=== PATIENT | female | born 1955 | race Caucasian/White ===

== ENCOUNTER 2024-11-15 13:51 | Emergency (ER) | payer MEDICARE ==
[~2024-11-15 13:51] MED LIST: Iopamidol 370 76% 100 ML VIAL ONE
[2024-11-15] MEDS ORDERED: Prochlorperazine 10 MG/2 ML VIAL ONE (14:13)
[2024-11-15] MEDS ORDERED: Ipratropium Bromide 2.5 ml Neb ONE ×2 (14:13→15:38)
[2024-11-15] MEDS ORDERED: Albuterol 2.5 MG (0.5 mL) NEB ONE (14:13)
[2024-11-15] MEDS ORDERED: Morphine 4 MG/ML VIAL ONE (14:14)
[2024-11-15] MEDS ORDERED: Lactated Ringer's 1,000 ML ONE (14:14)
[2024-11-15] MEDS ORDERED: methylPREDNISolone Sod Succ/PF 125 MG/2 ML VIAL ONE (14:14)
[2024-11-15 14:49] LABS: Hematocrit 45.9 % (36.0-47.0); Hemoglobin 14.6 g/dL (12.0-16.0); Mean Corpuscular HGB CONC 31.8 g/dL (32.0-36.0); Mean Corpuscular Hemoglobin 29.7 pg (27.0-31.0); Mean Corpuscular Volume 93.4 fl (78.0-98.0); Mean Platelet Volume 6.7 fL (7.4-10.4); Platelet Count 308 10x3/uL (130-400); Prothrombin Time 13.2 sec (12.0-14.7); RBC Distribution Width 14.6 % (11.5-14.5); Red Blood Cell (RBC) Count 4.92 mill/uL (4.20-5.40); White Blood Cell (WBC) Count 15.2 10x3/uL (4.8-10.8)
[2024-11-15 14:50] LABS: PTT 24.5 sec (22.9-36.1)
[2024-11-15 15:00] LABS: MDiff Complete? YES; Manual Diff?? YES
[2024-11-15 15:01] LABS: ALT (SGPT) 7 U/L (Less than 34); AST (SGOT) 16 U/L (11-34); Albumin 3.5 g/dL (3.1-4.5); Alkaline Phosphatase 139 U/L (40-110); Anion Gap 16 mmol/L (10-20); BUN (Urea Nitrogen) 8 mg/dL (9.8-20.1); Bilirubin, Total 0.6 mg/dL (0.3-1.2); Calc. Creatinine Clearance 0 mL/min (70-130); Calcium 9.1 mg/dL (7.8-10.44); Carbon Dioxide 20 mmol/L (23-31); Chloride 104 mmol/L (98-107); Estimated GFR 83; Globulin 3.9 g/dL (2.4-3.5); Glucose 148 mg/dL (80-115); Lipase 19 U/L (8-78); Magnesium 1.9 mg/dL (1.6-2.6); Potassium 3.7 mmol/L (3.5-5.1); Protein, Total 7.4 g/dL (5.8-8.1); Sodium 136 mmol/L (136-145)
[2024-11-15 15:02] LABS: Troponin I Less than 0.010 ng/mL (< 0.028)
[2024-11-15 15:04] LABS: Lymphocytes 3 % (21-51); Monocytes 3 % (0-10); Neutrophil 83 % (42-75); Platelet Adequacy Comment Appears Adequate; RBC Morph Comment Within Normal Limits; Reactive Lymphocytes 11 % (0-10)
[2024-11-15 15:05] LABS: Bicarbonate (HCO3v) 25.6 mmol/L (22.0-28.0); CO2 Tension (PvCO2) 52.8 mmHg (42.0-51.0); Calcium, Ionized 1.15 mmol/L (1.15-1.33); Chloride 108 mmol/L (98-107); Hemoglobin - Calc 17.6 g/dL (12.0-16.0); Potassium 3.8 mmol/L (3.5-5.1); Sodium 140 mmol/L (138-145); T. Carbon Dioxide 27.3 mmol/L (22.0-28.0); vO2 Saturation-calc 96.3 % (60.0-85.0)
[2024-11-15] MEDS ORDERED: Albuterol 2.5 MG (3 mL) NEB ONE (15:38)
== END 2024-11-15 18:25 | disposition home or self-care (01) ==
LOC: MADERS 13:51
DX: K52.9 Noninfective gastroenteritis and colitis, unspecified (principal); J44.1 Chronic obstructive pulmonary disease with (acute) exacerbation; Z79.51 Long term (current) use of inhaled steroids
CPT/HCPCS: 36415; 71045; 74177; 80053; 82330; 82435; 82803; 83605; 83690; 83735; 83880; 84132; 84295; 84443; 84484; 85014; 85025; 85610; 85730; 87040; 87428; 93005; 94760; 96374; 96375; J0780; J2270; J2919; J7120; J7611; J7644; Q9967

== ENCOUNTER 2025-07-28 18:50 | Emergency (ER) | payer MEDICARE ==
[2025-07-28 19:36] LABS: #Basophils 0.1 thou/uL (0.0-0.2); #Eosinophils 0.1 thou/uL (0.0-0.7); #Lymphocytes 2.4 thou/uL (1.20-3.40); #Monocytes 0.6 thou/uL (0.11-0.59); #Neutrophils 7.7 thou/uL (1.40-6.50); %Basophils 0.9 % (0.0-1.0); %Eosinophils 0.8 % (0.0-10.0); %Lymphocytes 22.1 % (21.0-51.0); %Monocytes 5.8 % (0.0-10.0); %Neutrophils 70.4 % (42.0-75.0); Hematocrit 39.6 % (36.0-47.0); Hemoglobin 12.2 g/dL (12.0-16.0); Mean Corpuscular Hemoglobin 30.6 pg (27.0-31.0); Mean Corpuscular Volume 99.5 fl (78.0-98.0); Platelet Count 266 10x3/uL (130-400); Red Blood Cell (RBC) Count 3.98 mill/uL (4.20-5.40); White Blood Cell (WBC) Count 10.9 10x3/uL (4.8-10.8)
[2025-07-28 19:54] LABS: ALT (SGPT) 19 U/L (Less than 34); AST (SGOT) 41 U/L (11-34); Albumin 3.5 g/dL (3.1-4.5); Alkaline Phosphatase 102 U/L (40-110); Anion Gap 20 mmol/L (10-20); BUN (Urea Nitrogen) 11 mg/dL (9.8-20.1); Bilirubin, Total 0.5 mg/dL (0.3-1.2); Calc. Creatinine Clearance 0 mL/min (70-130); Calcium 8.5 mg/dL (7.8-10.44); Carbon Dioxide 21 mmol/L (23-31); Chloride 96 mmol/L (98-107); Globulin 3.6 g/dL (2.4-3.5); Glucose 99 mg/dL (83-110); Potassium 3.9 mmol/L (3.5-5.1); Sodium 133 mmol/L (136-145)
[2025-07-28] MEDS ORDERED: Ondansetron PF 4 MG/2 ML Vial ONE (20:33)
== END 2025-07-28 19:12 | disposition home or self-care (01) ==
LOC: MADERS 18:50
DX: J44.1 Chronic obstructive pulmonary disease with (acute) exacerbation (principal); I50.9 Heart failure, unspecified; E78.00 Pure hypercholesterolemia, unspecified; F17.210 Nicotine dependence, cigarettes, uncomplicated; Z79.899 Other long term (current) drug therapy; Z79.51 Long term (current) use of inhaled steroids
CPT/HCPCS: 71045; 80053; 83880; 85025; 93005; J2405; 36415; 96374